=== PATIENT | female | born 1995 | race African-American/Black ===

== ENCOUNTER 2024-06-24 08:45 | Emergency (ER) | payer MEDICAID, SELFPAY ==
--- NOTE | ~2024-06-24 | CT_ITS ---
EXAMINATION: CT SOFT TISSUE NECK WITH CONTRAST CLINICAL INFORMATION: Soft tissue neck fullness. Mass versus abscess. COMPARISON: None available. TECHNIQUE: Following the intravenous administration of 60 mL of Omnipaque 350 intravenous contrast, helical imaging was performed in the axial plane with generation of coronal and sagittal reformatted images. This CT examination was performed using dose optimization techniques as appropriate, variously including the following: *Automated exposure control *Adjustment of mA and/or kV according to patient size (this includes techniques or standardized protocols for targeted exams where dose is matched to indication/reason for exam; i.e. extremities or head) *Use of iterative reconstruction technique. DLP: 490 mGy centimeter. FINDINGS: Skull base, nasopharynx, oropharynx, retropharynx, hypopharynx and larynx demonstrated a soft tissue fullness of the nasopharynx and palatine tonsils. Punctate calcifications in the right pontine tonsil. No peripheral enhancing fluid collection. The upper airway is patent. Knitter Hand spaces, parapharyngeal spaces and carotid spaces demonstrate no gross masses or fluid collections. Submandibular and sublingual compartments demonstrated no gross masses or fluid collections. There is a 1.5 cm hypodensity in the right sublingual compartment anteriorly. Salivary glands demonstrated no masses or calcifications. No gross lymphadenopathy. Vessels are patent. Thyroid gland is not enlarged without dominant nodules. No acute fracture or listhesis in the axial skeleton. Tympanic cavities and mastoid cells are aerated. No acute airspace disease in the included upper lobes. Patient's large body habitus. CT/CT soft tissue neck w IV con IMPRESSION: Inflammatory versus infectious process involving the nasopharynx and palatine tonsils without drainable fluid collection. Lymphoproliferative disorder seems less likely Probable chewing gum , right anterior sublingual compartment.. Electronically signed by: Darren Knott MD 06/24/2024 01:46 PM [facility]
[2024-06-24 09:15] VITALS: BP 121/76; PULSE 81; RESP 16; TEMP 36.8; O2SAT 98; BMI 31.3
--- NOTE | 2024-06-24 09:57 | ED_ITS ---
HPI - General Adult General Chief complaint: Upper Respiratory Symptoms Stated complaint: sore throat Time Seen by Provider: 06/24/24 09:28 Source: patient, RN notes reviewed and commercial sales consultant Mode of arrival: ambulatory Limitations: language barrier History of Present Illness ED Provider: Zoe English PA-C HPI narrative: This is a 28-year-old Bulgarian Creole speaking female, with no known medical problems, who presents emergency department with concerns for sore throat. Patient states that she has had intermittent sore throats for the last year. She states that over the last 3-4 days, her throat has become sore. She states that she notes some white spots on the back of her throat. She states that the inside of her throat feels sore, and worsens with swallowing. She states that at times it does feel like she has a lump in her throat however states that she is able to swallow, eat and drink without difficulty. She states that about 6 months ago she was seen for similar thing, and was prescribed medication, which relieved her symptoms. She was unsure at that time what it was however states that they were able to get swabs in came back positive for ?something?. Denies having any imaging of her neck in the past. She denies any profound weight loss without trying, denies any night sweats. No medical problems. No other complaints or concerns at this time. MD complaint: Sore throat Radiation: non-radiation Relieving factors: none Exacerbating factors: none Associated symptoms: denies other symptoms Treatments prior to arrival: none Related Data Previous Rx's ?Medication ?Instructions ?Recorded acetaminophen 650 mg 650 mg PO Q8H PRN pain #30 tabs 06/24/24 tablet,extended release (Tylenol 8 Hour) amoxicillin 875 mg-potassium 1 tab PO BID 10 days #20 tabs 06/24/24 clavulanate 125 mg tablet ibuprofen 600 mg tablet 600 mg PO Q6H PRN pain #30 tabs 06/24/24 Allergies Allergy/AdvReac Type Severity Reaction Status Date / Time No Known Allergies Allergy Verified 06/24/24 09:20 Review of Systems 2 Review of Systems: Yes all other systems are reviewed and are negative Constitutional: Constitutional: Reports as per [facility] Social History Social History Advance Directives: No Advance Directives Information Provided: Yes Physical Exam ED Vital Signs: Vital Signs - 24 hr 06/24/24 09:15 06/24/24 10:49 Temperature 98.3 F 97.6 F Pulse Rate 81 75 Respiratory Rate 16 16 Blood Pressure 121/76 112/71 Pulse Oximetry 98 100 Oxygen Delivery Method Room Air Room Air BMI result Body Mass Index 31.3 Const General: cooperative, comfortable and no acute distress Orientation/consciousness: patient oriented x3 Limitations: no limitations HENMT Other: Oropharynx is mildly erythematous, with tonsillar exudates noted. Uvula is midline. No trismus, drooling, or dysphonia. Head: Yes normal to inspection, Yes normocephalic and Yes atraumatic Ears: hearing grossly normal bilaterally and TM's normal bilaterally General nose exam: Normal external nose present Face and sinus: Yes normal facial exam Mouth: moist mucous membranes Throat: Yes posterior oropharynx normal Eyes General: appearance normal, both eyes and all related structures Eyelids: Yes eyelids normal Conjunctivae: conjunctivae normal Sclerae: sclerae normal Pupils: Equal, round and reactive pupils present EOM: EOMs intact bilaterally Neck Neck: Yes normal visual inspection, Yes full ROM and Yes no lymphadenopathy Lymphatic: no lymphadenopathy noted Chest Chest palpation & inspection: normal inspection of the chest Resp Effort & Inspection: normal respiratory effort and able to speak in complete sentences Auscultation: clear to auscultation bilaterally, no crackles, no rales, no rhonchi and no wheezes Cardio Rate: regular rate Rhythm: regular rhythm Heart sounds: S1 normal heart sound present and S2 normal heart sound present GI Inspection: Yes normal to inspection Skin General skin exam: no rashes or lesions noted Trauma: no lacerations or abrasions Wounds: no wounds Neuro General: patient oriented x3 and moves all extremities Cranial nerves: Yes Equal, round and reactive pupils present Extrem General: Yes normal to inspection Right upper extremity: normal to inspection Left upper extremity: normal to inspection Right lower extremity: normal to inspection Left lower extremity: normal to inspection Course Reevaluation(s) Reevaluation #1: Viral swabs negative, strep swab negative. Given patient has had a 10-15 lb weight loss over the last month, and fullness sensation in her throat, and poor primary care follow-up, will obtain basic labs, and CT to rule out mass versus abscess Time: 11:21 Reevaluation #2: CT scan returns, revealing inflammatory versus infectious process involving the nasopharynx and palatine tonsils without drainable fluid collection. Lympho proliferative disorder seems less likely. Discussed findings with patient as well as commercial sales consultant at bedside. Will treat as a tonsillitis/sinusitis. Given ENT referral for management. Stressed the importance of following up given that we are unable to rule out a lympho proliferative disorder. She understands the gravity of this, and she will follow-up outpatient. Given strict return precautions. She understands and agrees with plan. Patient stable for discharge. Time: 14:10 Medications Administered Discontinued Medications Generic Name Dose Route Start Last Admin Trade Name Jonathan PRN Reason Stop Dose Admin Iohexol 100 ml 06/24/24 12:44 06/24/24 12:44 Iohexol 350 Mg/Ml 100 Ml Infus..Btl IV 06/24/24 12:45 60 ml ONCE ONE Administration Medical Decision Making Medical Decision Making [facility] Narrative: This is a 28-year-old Bulgarian Creole speaking female who presents emergency department with complaints of sore throat. She reports that symptoms have been intermittent for the last year, reporting worsening over the last 3-4 days. On arrival, vital signs within normal limits. She is speaking in full sentences under no acute distress. Oropharynx with bilateral tonsillar hypertrophy, and exudates noted, no trismus, drooling, or dysphonia. Patient discusses a time about 6 months ago where she was seen medically, had swabs performed and was treated, states that her symptoms alleviated after being on medication. This sounds like she may have had strep throat. Denies any diagnostic imaging of her throat. She denies any difficulty swallowing or breathing. She does not have a primary care doctor. Denies any significant changes in her weight, or night sweats. Plan: Viral swabs Differential Diagnosis Differential Diagnoses: The differential diagnosis associated with the presentation includes Tonsillitis, strep Admission/Observation Consideration of admission/observation: Escalation of care including admission/observation considered Lab Data [facility] Lab Attestation statement: I reviewed the patient's lab results. Slight leukopenia at 4.4, chemistry revealing no significant electrolyte derangement. Negative flu, RSV, COVID, strep 06/24/24 11:27 06/24/24 11:27 Labs: Lab Results 06/24/24 06/24/24 Range/Units 09:24 11:27 WBC 4.4 L (4.8-10.8) X10*3/uL RBC 4.44 (4.20-5.50) X10*6/uL Hgb 12.4 (12.0-16.0) g/dl Hct 37.3 (37.0-47.0) % MCV 84.0 (80.0-98.0) fL MCH 27.9 (27.0-33.0) pg MCHC 33.2 (31.0-35.0) g/dl RDW 13.6 (11.0-16.0) % Plt Count 161 (160-400) X10*3/uL MPV 12.0 (9.4-12.3) fL Immature Gran % (Auto) 0.2 (0.0-0.4) % Neut % (Auto) 40.7 L (45-73) % Lymph % (Auto) 48.2 H (20-40) % Griggs % (Auto) 9.7 (2-11) % Eos % (Auto) 0.7 (0-4) % Baso % (Auto) 0.5 (0-2) % Lymph # (Auto) 2.1 (1.2-4.9) X10*3/uL Griggs # (Auto) 0.4 (0.1-1.2) X10*3/uL Eos # (Auto) 0.0 (0.0-0.4) X10*3/uL Baso # (Auto) 0.0 (0.0-0.2) X10*3/uL Abs Immat Gran (auto) 0.01 (0.00-0.03) X10*3/uL Absolute Neuts (auto) 1.8 L (2.0-8.3) x10*3/uL Absolute Nucleated RBC 0.000 (0.0-0.012) X10*3/uL Nucleated RBC % (auto) 0.0 (0.0-0.2) /100WBC Sodium 139 (135-145) mmol/L Potassium 3.9 (3.3-5.1) mmol/L Chloride 107 (96-108) mmol/L Carbon Dioxide 25 (22-29) mmol/L Anion Gap 11 L (12-20) BUN 9 (9-16) mg/dL Creatinine 0.69 (0.5-1.4) mg/dL Estim Creat Clear Calc 102.7 Estimated GFR > 60 Random Glucose 81 (60-115) mg/dL Calcium 9.4 (8.4-10.2) mg/dL Total Bilirubin 0.3 (0.0-1.0) mg/dL Direct Bilirubin 0.1 (0.0-0.5) mg/dL AST 38 H (5-31) U/L ALT 21 (0-31) U/L Alkaline Phosphatase 82 (39-117) U/L Total Protein 8.2 H (6.5-8.0) g/dL Albumin 4.5 (3.5-5.0) g/dL Influenza Type A (PCR) NEGATIVE (Negative) Influenza Type B (PCR) NEGATIVE (Negative) RSV RNA Qual (PCR) NEGATIVE (Negative) SARS-CoV-2 RNA (RT-PCR) NEGATIVE (Negative) S. pyogenes GrpA RADHA Negative (Negative) Radiology Impression Discussion of test interpretation with radiology: I have reviewed the radiologist's reading. Radiologist Impression: Report Number: [id number]: Total DLP = 490.00 mGy-cm EXAMINATION: CT SOFT TISSUE NECK WITH CONTRAST CLINICAL INFORMATION: Soft tissue neck fullness. Mass versus abscess. COMPARISON: None available. TECHNIQUE: Following the intravenous administration of 60 mL of Omnipaque 350 intravenous contrast, helical imaging was performed in the axial plane with generation of coronal and sagittal reformatted images. This CT examination was performed using dose optimization techniques as appropriate, variously including the following: *Automated exposure control *Adjustment of mA and/or kV according to patient size (this includes techniques or standardized protocols for targeted exams where dose is matched to indication/reason for exam; i.e. extremities or head) *Use of iterative reconstruction technique. DLP: 490 mGy centimeter. FINDINGS: Skull base, nasopharynx, oropharynx, retropharynx, hypopharynx and larynx demonstrated a soft tissue fullness of the nasopharynx and palatine tonsils. Punctate calcifications in the right pontine tonsil. No peripheral enhancing fluid collection. The upper airway is patent. Project Product Manager spaces, parapharyngeal spaces and carotid spaces demonstrate no gross masses or fluid collections. Submandibular and sublingual compartments demonstrated no gross masses or fluid collections. There is a 1.5 cm hypodensity in the right sublingual compartment anteriorly. Salivary glands demonstrated no masses or calcifications. No gross lymphadenopathy. Vessels are patent. Thyroid gland is not enlarged without dominant nodules. No acute fracture or listhesis in the axial skeleton. Tympanic cavities and mastoid cells are aerated. No acute airspace disease in the included upper lobes. Patient's large body habitus. CT/CT soft tissue neck w IV con IMPRESSION: Inflammatory versus infectious process involving the nasopharynx and palatine tonsils without drainable fluid collection. Lymphoproliferative disorder seems less likely Probable chewing gum , right anterior sublingual compartment.. Electronically signed by: Darren Knott MD 06/24/2024 01:46 PM EST Dictated By: Darren Rodriguez MD Discharge Plan Discharge Clinical Impression: Sinusitis, Pharyngitis Patient Disposition: Home, Self-Care Instructions: Pharyngitis (ED), Sinusitis (ED) Additional Instructions: You were seen in the emergency department due to fullness like sensation in your throat. Your CT scan shows inflammation versus infection in your nose/back of your throat, without any signs of abscess. We are treating you with antibiotics. I want you to follow-up with the revenue research analyst as they can further manage this. You also need to have a primary care physician to ensure that your symptoms are improving. Please call. Drink plenty of fluids get plenty of rest. Ibuprofen or Tylenol can help with your symptoms. You tested negative for COVID, flu, RSV and strep throat. Otherwise your blood work was reassuring. If any new or worsening symptoms occur including but not limited to inability to swallow, worsening symptoms, chest pain, shortness of breath, please seek emergent care. Prescriptions: New amoxicillin-pot clavulanate 875-125 mg tablet 1 tab PO BID 10 Days Qty: 20 0RF ibuprofen 600 mg tablet 600 mg PO Q6H PRN (Reason: pain) Qty: 30 0RF acetaminophen [Tylenol 8 Hour] 650 mg tablet extended release 650 mg PO Q8H PRN (Reason: pain) Qty: 30 0RF Referrals: [facility] [Physician] - [facility] [Physician] - Stand Alone Forms: Work/School Release Print Language: Bulgarian Crekarsten
[2024-06-24 09:59] LABS: IDNOW Serial# 58CA691E; Strep A Nucleic Acid Negative (Negative)
[2024-06-24 10:11] LABS: Influenza A PCR NEGATIVE (Negative); Influenza B PCR NEGATIVE (Negative); Resp Syncy Virus RNA Qual PCR NEGATIVE (Negative); SARS COV2 PCR INHOUSE NEGATIVE (Negative)
[2024-06-24 10:49] VITALS: BP 112/71; PULSE 75; RESP 16; TEMP 36.4; O2SAT 100
[2024-06-24 11:30] LABS: MANUAL DIFF FLAG NO
[2024-06-24 11:32] LABS: Basophils Percent Auto 0.5 % (0-2); Eosinophils Percent Auto 0.7 % (0-4); Hematocrit 37.3 % (37.0-47.0); Hemoglobin 12.4 g/dl (12.0-16.0); Imm Gran Abs Auto 0.01 X10*3/uL (0.00-0.03); Imm Gran Pct Auto 0.2 % (0.0-0.4); Lymphocytes Absolute Auto 2.1 X10*3/uL (1.2-4.9); Lymphocytes Percent Auto 48.2 % (20-40); Mean Corpuscular HGB Conc 33.2 g/dl (31.0-35.0); Mean Corpuscular Hemoglobin 27.9 pg (27.0-33.0); Monocytes Absolute Auto 0.4 X10*3/uL (0.1-1.2); Monocytes Percent Auto 9.7 % (2-11); Neutrophils Absolute Auto 1.8 x10*3/uL (2.0-8.3); Neutrophils Percent Auto 40.7 % (45-73); Platelet Count 161 X10*3/uL (160-400); Red Blood Count 4.44 X10*6/uL (4.20-5.50); Red Cell Distribution Width 13.6 % (11.0-16.0); White Blood Count 4.4 X10*3/uL (4.8-10.8)
[2024-06-24 11:55] LABS: Alanine Aminotransferase 21 U/L (0-31); Albumin Level 4.5 g/dL (3.5-5.0); Anion Gap 11 (12-20); Aspartate Amino Transferase 38 U/L (5-31); Bilirubin Direct 0.1 mg/dL (0.0-0.5); Bilirubin Total 0.3 mg/dL (0.0-1.0); Blood Urea Nitrogen 9 mg/dL (9-16); Calcium 9.4 mg/dL (8.4-10.2); Carbon Dioxide 25 mmol/L (22-29); Chloride 107 mmol/L (96-108); Creatinine Clr Calc Pharmacy 102.7; Estimated Glomerular Filt Rate > 60; Glucose Random 81 mg/dL (60-115); Potassium 3.9 mmol/L (3.3-5.1); Sodium 139 mmol/L (135-145); Total Protein 8.2 g/dL (6.5-8.0)
[2024-06-24 12:28] LABS: Alkaline Phosphatase 82 U/L (39-117)
[2024-06-24] MEDS: iohexoL 350 MG/ML 100 ML INFUS..BTL IV (12:44)
[2024-06-24 14:27] VITALS: BP 113/71; PULSE 82; RESP 14; TEMP 36.7; O2SAT 99
[2024-06-24 14:45] VITALS: BP 113/71; PULSE 82; RESP 14; TEMP 36.7; O2SAT 99
== END 2024-06-24 14:46 | disposition home or self-care (01) ==
PROVIDERS: Physician Assistant Medical; Emergency Provider Emergency Medicine
DX: J32.9 Chronic sinusitis, unspecified (principal); J02.9 Acute pharyngitis, unspecified; Z03.818 Encounter for observation for suspected exposure to other biological agents ruled out
CPT/HCPCS: 0241U; 36415; 70491; 80048; 80076; 85025; 87651; 99283; 99284; Q9967

== ENCOUNTER → 2024-06-24 11:20 | Outpatient (BNV) | payer MEDICAID, SELFPAY | PROVIDERS: Emergency Provider Emergency Medicine; Visit Provider Radiology Diagnostic Radiology | DX: R22.1 Localized swelling, mass and lump, neck (principal) | CPT/HCPCS: 70491 ==

== ENCOUNTER 2024-12-08 08:22 | Emergency (ER) | payer SELFPAY ==
[2024-12-08 08:29] VITALS: BP 125/80; PULSE 74; RESP 16; TEMP 37; O2SAT 100; BMI 24.5
--- NOTE | 2024-12-08 09:49 | ED.DENTAL ---
HPI - Dental/Oral General Chief complaint: Dental/Oral Stated complaint: tooth ache Time Seen by Provider: 12/08/24 08:55 Source: patient and hog ringer (Cuban Creole) Mode of arrival: ambulatory Limitations: language barrier (Cuban Creole) History of Present Illness ED Provider: ESPERANZA ENNIS PA-C HPI Narrative: 29 year old Cuban Creole speaking female presents to the ED today for evaluation of tooth ache x 24 hours. Pain is localized to her bottom right molar. Reports pain radiates to jaw. Denies any trauma/ injury to the tooth. Admits to poor dentition. She cannot recall the last time she saw a dentist. She has not trialed any pain control prior to arrival. Denies fever, chills, headache, odynophagia, dysphagia, trismus. No hx DM. MD Complaint: tooth pain Teeth map:  1. Onset (ago): day(s) (1) Duration: constant Severity: moderate Context: history of dental caries Related Data Previous Rx's ?Medication ?Instructions ?Recorded acetaminophen 650 mg 650 mg PO Q8H PRN pain #30 tabs 06/24/24 tablet,extended release (Tylenol 8 Hour) amoxicillin 875 mg-potassium 1 tab PO BID 10 days #20 tabs 06/24/24 clavulanate 125 mg tablet ibuprofen 600 mg tablet 600 mg PO Q6H PRN pain #30 tabs 06/24/24 amoxicillin 875 mg-potassium 1 tab PO Q12H 7 days #13 tabs 12/08/24 clavulanate 125 mg tablet Allergies Allergy/AdvReac Type Severity Reaction Status Date / Time No Known Allergies Allergy Verified 12/08/24 08:32 Review of Systems Review of Systems: Constitutional: No fever, chills, fatigue, night sweats, weight changes ENT/Mouth: No ear pain, hearing loss, nasal congestion, sinus pain, rhinorrhea, sore throat, +dental pain Eyes: No eye pain, swelling, redness, vision changes, discharge Cardio: No chest pain, palpitations, OLIVAREZ, orthopnea, peripheral edema Pulm: No SOB, cough, sputum, wheezing, dyspnea, hemoptysis GI: No nausea, vomiting, hematemesis, abdominal pain, diarrhea, constipation, hematochezia, melena : No irregular bleeding, dysuria, frequency, urgency, hesitancy, hematuria, flank pain, urinary flow changes, urinary incontinence or retention MSK: No back pain, neck pain, joint pain, myalgias Skin: No lesions, rashes Neuro: No weakness, numbness, paresthesias, LOC, dizziness, headache Psych: No anxiety/panic, depression, SI/HI, AH/VH All other systems reviewed and are negative. [facility] Past Medical History Attestation statement: The following information was validated with the patient. Source: old records reviewed and nursing notes reviewed Social History Social History Advance Directives: No Advance Directives Information Provided: Yes Physical Exam Vital Signs: Vital Signs: Last Vital Signs Temp 98.6 F 12/08/24 08:29 Pulse 74 12/08/24 08:29 Resp 16 12/08/24 08:29 BP 125/80 12/08/24 08:29 Pulse Ox 100 12/08/24 08:29 O2 Del Method Room Air 12/08/24 08:29 BMI result Body Mass Index 24.5 Vital signs stable, afebrile General: Well appearing, in no acute distress. Skin: Warm, dry, intact. No rashes or lesions. Head: Normocephalic, atraumatic. EENT: Hearing is intact b/l. Conjunctiva clear. Sclera is anicteric. PERRLA. EOM intact. Moist mucous membranes.? + No facial edema. Tongue and lips wnl. multiple dental caries and poor dentition. right lower molar with localized periapical swelling to the buccal ginginva. No pointing. No active bleeding/ discharge. TTP. No palpable fluctuance. No edema to buccal mucosa. Posterior oropharynx without erythema/edema. Uvula midline. Controlling secretions and speaking in complete sentences. No submandublar, submental or cervical LAD. no anterior neck swelling. Cardiac: Chest wall symmetric. RRR Lungs: Normal respiratory effort without accessory muscle use. CTA bilaterally. Neuro: AOx3. Normal speech. Ambulating with steady gait. Course Course Course Narrative: Patient noted to have dental infection. There is no evidence of abscess that warrants drainage at this time. Will treat patient's pain and patient will be discharged home on augmentin to ensure there is no worsening infection for follow-up with dentist. Patient advised to follow up with dentist this week. A referral has been provided. Patient has remained stable throughout ED visit today. I discussed worrisome signs and symptoms and when to return to the ED. All questions answered at this time. Patient is agreeable with disposition and stable for discharge. Medical Decision Making Medical Decision Making [facility] Narrative: 29 year old Cuban Creole speaking female presents to the ED today for evaluation of tooth ache x 24 hours. Vital signs stable. afebrile. she is well appearing and in NAD. on exam, no facial edema. Tongue and lips wnl. multiple dental caries and poor dentition. right lower molar with localized periapical swelling to the buccal ginginva. No pointing. No active bleeding/ discharge. TTP. No palpable fluctuance. No edema to buccal mucosa. Posterior oropharynx without erythema/edema. Uvula midline. Controlling secretions and speaking in complete sentences. No submandublar, submental or cervical LAD. no anterior neck swelling. Differential includes dental/ periapical abscess/infection, tooth ache. Unlikely mono, herpes, sialadenitis, sialolithiasis, GAUGE OPERATOR, retropharyngeal abscess, deep neck infection, osteomyelitis, facial cellulitis/ abscess, lymphoma, ludwigs angina. Plan for pain control and discharge home with antibiotics and dentist follow up. Differential Diagnosis Differential Diagnoses: The differential diagnosis associated with the presentation includes as above. Admission/Observation Not indicated. Tests considered The following testing was considered but not selected: I considered obtaining a CT of the soft tissues neck however these is no evidence of ludwigs angina or concern for deep tissue infection. Not warranted at this time. Prescription Management I considered prescription management with: Pain Medication and Antibiotic (Augmentin) Social Determinants Patient?s care significantly limited by Social Determinants of Health including: Other Social Determinant of Health Critical Care Time Critical Care Time Critical Care Time: No Discharge Plan Discharge Clinical Impression: Tooth infection Patient Disposition: Home, Self-Care Instructions: Dental Abscess (ED), Root Canal (DC) Additional Instructions: You were evaluated in ED today for dental pain. You have a dental infection. Augmentin is an antibiotic that has been sent to your pharmacy for treatment. Take this as prescribed and do not skip any doses. Take this to completion or the infection may persist or worsen. On Augmentin, softer bowel movements are to be expected. Call your provider if you move your bowels more than 4 times a day, your bowel movements are almost all liquid, or you get a rash.? Take Tylenol/ Motrin at home as needed for pain. YOU NEED TO FOLLOW UP WITH A DENTIST. You have been provided with a referral to [facility]. They are currently taking new clients. Call them to make an appointment. They will not call you. Return with new or worsening symptoms. In the case of an emergency call 531. [facility]: [phone] [address] [facility] [id number] Prescriptions: New amoxicillin-pot clavulanate 875-125 mg tablet 1 tab PO Q12H 7 Days Qty: 13 0RF No Action amoxicillin-pot clavulanate 875-125 mg tablet 1 tab PO BID 10 Days Qty: 20 0RF ibuprofen 600 mg tablet 600 mg PO Q6H PRN (Reason: pain) Qty: 30 0RF acetaminophen [Tylenol 8 Hour] 650 mg tablet extended release 650 mg PO Q8H PRN (Reason: pain) Qty: 30 0RF Referrals: Physician,None [Primary Care Provider, Medical] Print Language: Cuban Sonia
[2024-12-08] MEDS: Amoxicillin/Potassium Clav 875 MG TABLET PO (10:18)
[2024-12-08] MEDS: Ketorolac Tromethamine 30 MG/ML VIAL IM (10:18)
[2024-12-08 10:21] VITALS: BP 125/80; PULSE 74; RESP 16; TEMP 37; O2SAT 100
== END 2024-12-08 10:23 | disposition home or self-care (01) ==
PROVIDERS: Emergency Provider Emergency Medicine
DX: K04.7 Periapical abscess without sinus (principal); R68.84 Jaw pain
CPT/HCPCS: 96372; 99283; 99284; J1885